=== PATIENT | female | born 1970 | race Caucasian/White ===

== ENCOUNTER 2022-04-20 08:14 | Day surgery (SDC) | payer OTHER ==
[~2022-04-20] VITALS: Ht 160 cm; Wt 101.2 kg
[2022-04-20] MEDS ORDERED: fentaNYL citrate 0.05 MG/ML VIAL ONE (09:48)
[2022-04-20] MEDS ORDERED: LIDOCAINE 2% 100 MG/5 ML UJET TP ONE (09:48)
[2022-04-20] MEDS ORDERED: fentaNYL citrate 0.05 MG/ML VIAL IVP ONE (10:45)
== END 2022-04-20 10:49 | disposition home or self-care (01) ==
LOC: MMU 08:14 → MDS 08:14
PROVIDERS: ATTEND Internal Medicine Gastroenterology
DX: Z12.11 Encounter for screening for malignant neoplasm of colon (principal); K63.5 Polyp of colon; K64.9 Unspecified hemorrhoids; I10 Essential (primary) hypertension; E78.5 Hyperlipidemia, unspecified; F41.9 Anxiety disorder, unspecified; G43.909 Migraine, unspecified, not intractable, without status migrainosus; K21.9 Gastro-esophageal reflux disease without esophagitis; Z20.822 Contact with and (suspected) exposure to COVID-19; Z79.899 Other long term (current) drug therapy
CPT/HCPCS: 45385; 87426; J3010